=== PATIENT | male | born 1935 | race Caucasian/White ===

== ENCOUNTER 2021-09-23 02:41 | Inpatient (IN) | payer OTHER, MEDICAID ==
[~2021-09-23] VITALS: Ht 172.7 cm; Wt 90.4 kg
[2021-09-23] MEDS ORDERED: METF-1211 PO (02:59)
[2021-09-23] MEDS ORDERED: RIVA15TA PO (02:59)
[2021-09-23] MEDS ORDERED: BUME1TAB34 PO (02:59)
[2021-09-23] MEDS ORDERED: GABA-1181 PO (02:59)
[2021-09-23] MEDS ORDERED: MULT-660 PO (02:59)
[2021-09-23] MEDS ORDERED: LEVO75 PO (02:59)
[2021-09-23] MEDS ORDERED: CARV3 PO (02:59)
[2021-09-23 03:11] LABS: BASOPHILS % (AUTO) 1.1 % (0.0-2.0); EOSINOPHILS % (AUTO) 5.4 % (1.0-6.0); HEMATOCRIT 38.6 % (41-53); HEMOGLOBIN 12.9 g/dL (13.5-17.5); LYMPHOCYTES # (AUTO) 1.3 K/uL (1.0-4.8); LYMPHOCYTES % (AUTO) 16.7 % (22.0-44.0); MEAN CORPUSCULAR HEMOGLOBIN 29.9 pg (26.0-34.0); MEAN CORPUSCULAR HGB CONC 33.4 G/dL (31.0-37.0); MEAN CORPUSCULAR VOLUME 90 fL (80-100); MONOCYTES # (AUTO) 0.7 K/uL (0.1-1.0); MONOCYTES % (AUTO) 9.5 % (2.0-9.0); NEUTROPHILS # (AUTO) 5.1 K/uL (1.8-7.7); NEUTROPHILS % (AUTO) 67.3 % (40.0-70.0); PLATELET COUNT (AUTO) 201 K/uL (150-450); RED BLOOD CELL COUNT(AUTO) 4.32 MIL/uL (4.50-5.90); RED CELL DISTRIBUTION WIDTH 15.1 % (11.5-14.5)
[2021-09-23 03:14] LABS: COVID AG,FIA SOURCE NASAL SWAB
[2021-09-23 03:17] LABS: CREATININE 1.53 mg/dL (0.60-1.30); POTASSIUM 4.4 mmol/L (3.5-5.1)
[2021-09-23 03:21] LABS: INR 1.3 (0.9-1.1); PROTHROMBIN TIME 13.4 SEC (9.4-11.6)
[2021-09-23 03:23] LABS: ALBUMIN 2.6 g/dL (3.4-5.0); BILIRUBIN,TOTAL 0.4 mg/dL (0.1-1.0); TOTAL PROTEIN, SERUM 7.9 g/dL (6.4-8.2)
[2021-09-23 03:49] LABS: FREE T4 (FREE THYROXINE) 1.22 ng/dL (0.76-1.46); THYROID STIMULATING HORMONE 5.45 uIU/mL (0.36-3.74)
[2021-09-23] MEDS ORDERED: 0.9% SODIUM CHLORIDE 10 ML SYRINGE IVP PRN (04:30)
[2021-09-23] MEDS ORDERED: ACETAMINOPHEN 325 MG TABLET PO PRN (05:30)
[2021-09-23] MEDS: LEVOTHYROXINE SODIUM 75 MCG TABLET PO SCH (07:52)
[2021-09-23 08:00] VITALS: BP 104/39
[2021-09-23] MEDS ORDERED: HEPARIN SODIUM,PORCINE 5,000 UNITS/ML VIAL SQ SCH (08:00)
[2021-09-23] MEDS: BUMETANIDE 1 MG TABLET PO SCH (09:00)
[2021-09-23] MEDS: MULTIVITAMINS, THERAPEUTIC TABLET PO SCH (09:00)
[2021-09-23] MEDS: GABAPENTIN 300 MG CAPSULE PO SCH ×3 (09:00→20:54)
[2021-09-23] MEDS: ETHYL ALCOHOL 62% ANTISEPTIC NASAL INHALANT 0.6 ML AMPUL NASAL SCH ×2 (09:00→20:54)
[2021-09-23 12:00] VITALS: BP 116/47
[2021-09-23 16:00] VITALS: BP 126/53
[2021-09-23] MEDS ORDERED: RIVAROXABAN 15 MG TABLET PO SCH (17:30)
[2021-09-23 20:00] VITALS: BP 125/71
[2021-09-24] VITALS: BP 129/87
[2021-09-24 04:00] VITALS: BP 111/54
[2021-09-24 05:40] LABS: BASOPHILS % (AUTO) 1.1 % (0.0-2.0); EOSINOPHILS % (AUTO) 5.7 % (1.0-6.0); HEMATOCRIT 39.5 % (41-53); HEMOGLOBIN 13.1 g/dL (13.5-17.5); LYMPHOCYTES # (AUTO) 1.1 K/uL (1.0-4.8); LYMPHOCYTES % (AUTO) 17.1 % (22.0-44.0); MEAN CORPUSCULAR HEMOGLOBIN 29.8 pg (26.0-34.0); MEAN CORPUSCULAR VOLUME 90 fL (80-100); MONOCYTES # (AUTO) 0.6 K/uL (0.1-1.0); MONOCYTES % (AUTO) 9.5 % (2.0-9.0); NEUTROPHILS # (AUTO) 4.2 K/uL (1.8-7.7); NEUTROPHILS % (AUTO) 66.6 % (40.0-70.0); PLATELET COUNT (AUTO) 196 K/uL (150-450); RED BLOOD CELL COUNT(AUTO) 4.38 MIL/uL (4.50-5.90); RED CELL DISTRIBUTION WIDTH 15.3 % (11.5-14.5)
[2021-09-24 05:45] LABS: CALCIUM, TOTAL 8.9 mg/dL (8.8-10.5); CREATININE 1.61 mg/dL (0.60-1.30); POTASSIUM 3.9 mmol/L (3.5-5.1)
[2021-09-24] MEDS: LEVOTHYROXINE SODIUM 75 MCG TABLET PO SCH (06:17)
[2021-09-24 08:00] VITALS: BP 118/96
[2021-09-24] MEDS: GABAPENTIN 300 MG CAPSULE PO SCH ×3 (09:11→20:50)
[2021-09-24] MEDS: MULTIVITAMINS, THERAPEUTIC TABLET PO SCH (09:11)
[2021-09-24] MEDS: BUMETANIDE 1 MG TABLET PO SCH (09:11)
[2021-09-24] MEDS: ETHYL ALCOHOL 62% ANTISEPTIC NASAL INHALANT 0.6 ML AMPUL NASAL SCH ×2 (09:11→20:50)
[2021-09-24 12:00] VITALS: BP 114/62
[2021-09-24] MEDS ORDERED: ATROPINE SULFATE 0.1 MG/ML 10 ML SYRINGE IVP PRN (13:15)
[2021-09-24 16:00] VITALS: BP 129/68
[2021-09-24 20:00] VITALS: BP 116/53
[2021-09-25] VITALS (7 sets, daily range): BP systolic 109–136; BP diastolic 42–68
[2021-09-25] MEDS: LEVOTHYROXINE SODIUM 75 MCG TABLET PO SCH (05:35)
[2021-09-25 05:40] LABS: BASOPHILS % (AUTO) 0.8 % (0.0-2.0); HEMATOCRIT 38.5 % (41-53); LYMPHOCYTES # (AUTO) 1.1 K/uL (1.0-4.8); LYMPHOCYTES % (AUTO) 14.1 % (22.0-44.0); MEAN CORPUSCULAR HEMOGLOBIN 30.1 pg (26.0-34.0); MEAN CORPUSCULAR HGB CONC 33.6 G/dL (31.0-37.0); MEAN CORPUSCULAR VOLUME 90 fL (80-100); MONOCYTES # (AUTO) 0.8 K/uL (0.1-1.0); MONOCYTES % (AUTO) 9.9 % (2.0-9.0); NEUTROPHILS # (AUTO) 5.3 K/uL (1.8-7.7); NEUTROPHILS % (AUTO) 69.2 % (40.0-70.0); PLATELET COUNT (AUTO) 209 K/uL (150-450); RED CELL DISTRIBUTION WIDTH 15.1 % (11.5-14.5)
[2021-09-25 06:17] LABS: CREATININE 1.76 mg/dL (0.60-1.30)
[2021-09-25] MEDS: ETHYL ALCOHOL 62% ANTISEPTIC NASAL INHALANT 0.6 ML AMPUL NASAL SCH ×2 (09:41→20:33)
[2021-09-25] MEDS: MULTIVITAMINS, THERAPEUTIC TABLET PO SCH (09:42)
[2021-09-25] MEDS: GABAPENTIN 300 MG CAPSULE PO SCH ×3 (09:42→20:32)
[2021-09-25] MEDS: BUMETANIDE 1 MG TABLET PO SCH (09:42)
[2021-09-25] MEDS: RIVAROXABAN 15 MG TABLET PO SCH ×2 (17:38→17:43)
[2021-09-26 00:11] VITALS: BP 125/48
[2021-09-26 04:24] VITALS: BP 120/51
[2021-09-26] MEDS: LEVOTHYROXINE SODIUM 75 MCG TABLET PO SCH (05:32)
[2021-09-26 07:17] VITALS: BP 121/53
[2021-09-26 07:46] LABS: BASOPHILS % (AUTO) 0.9 % (0.0-2.0); EOSINOPHILS % (AUTO) 6.2 % (1.0-6.0); HEMATOCRIT 37.5 % (41-53); HEMOGLOBIN 12.6 g/dL (13.5-17.5); LYMPHOCYTES # (AUTO) 1.2 K/uL (1.0-4.8); MEAN CORPUSCULAR HEMOGLOBIN 30.1 pg (26.0-34.0); MEAN CORPUSCULAR HGB CONC 33.5 G/dL (31.0-37.0); MEAN CORPUSCULAR VOLUME 90 fL (80-100); MONOCYTES # (AUTO) 0.7 K/uL (0.1-1.0); MONOCYTES % (AUTO) 10.6 % (2.0-9.0); NEUTROPHILS # (AUTO) 4.6 K/uL (1.8-7.7); NEUTROPHILS % (AUTO) 65.3 % (40.0-70.0); PLATELET COUNT (AUTO) 198 K/uL (150-450); RED BLOOD CELL COUNT(AUTO) 4.18 MIL/uL (4.50-5.90); RED CELL DISTRIBUTION WIDTH 15.2 % (11.5-14.5)
[2021-09-26 07:59] LABS: CREATININE 1.95 mg/dL (0.60-1.30); POTASSIUM 3.8 mmol/L (3.5-5.1)
[2021-09-26] MEDS: GABAPENTIN 300 MG CAPSULE PO SCH ×2 (09:43→16:13)
[2021-09-26] MEDS: ETHYL ALCOHOL 62% ANTISEPTIC NASAL INHALANT 0.6 ML AMPUL NASAL SCH (09:43)
[2021-09-26] MEDS: MULTIVITAMINS, THERAPEUTIC TABLET PO SCH (09:46)
[2021-09-26] MEDS: BUMETANIDE 1 MG TABLET PO SCH (09:46)
[2021-09-26 12:16] VITALS: BP 133/61
[2021-09-26 15:29] VITALS: BP 123/53
[2021-09-26] MEDS: RIVAROXABAN 15 MG TABLET PO SCH (18:19)
[2021-09-26 20:46] LABS: GLUCOMETER DEV NAME(LOC) 5N.3; GLUCOSE,POINT OF CARE 207 MG/DL (70-110)
[2021-09-26] MEDS ORDERED: ETHYL ALCOHOL 62% ANTISEPTIC NASAL INHALANT 0.6 ML AMPUL NASAL SCH (21:00)
== END 2021-09-26 19:05 | DRG 309 ==
LOC: EMS 02:42 → ICU 04:00 → 5N 09-25 17:30
PROVIDERS: ADMIT Internal Medicine; ATTEND Internal Medicine
DX: I48.91 Unspecified atrial fibrillation (principal); I13.0 Hypertensive heart and chronic kidney disease with heart failure and stage 1 through stage 4 chronic kidney disease, or unspecified chronic kidney disease; R00.1 Bradycardia, unspecified; F32.A Depression, unspecified; I50.9 Heart failure, unspecified; E11.51 Type 2 diabetes mellitus with diabetic peripheral angiopathy without gangrene; N18.30 Chronic kidney disease, stage 3 unspecified; E11.22 Type 2 diabetes mellitus with diabetic chronic kidney disease; Z20.822 Contact with and (suspected) exposure to COVID-19; F03.90 Unspecified dementia, unspecified severity, without behavioral disturbance, psychotic disturbance, mood disturbance, and anxiety; F39 Unspecified mood [affective] disorder; E03.9 Hypothyroidism, unspecified; E78.00 Pure hypercholesterolemia, unspecified; I25.2 Old myocardial infarction; Z89.429 Acquired absence of other toe(s), unspecified side; Z79.01 Long term (current) use of anticoagulants; Z79.899 Other long term (current) drug therapy
CPT/HCPCS: 71045; 80048; 80053; 82550; 82962; 83880; 84439; 84443; 84484; 85025; 85610; 85730; 87081; 92610; 93005; 93306; 99291; G0378; 36415-L1; 36415-TC

== ENCOUNTER 2022-07-27 19:01 | Inpatient (IN) | payer OTHER, MEDICAID ==
[~2022-07-27] VITALS: Ht 175.3 cm; Wt 83.8 kg
[~2022-07-27 19:01] MED LIST: BUME1TAB34 PO; GABA-1181 PO; LEVO75 PO; METF-1211 PO; MULT-660 PO; RIVA15TA PO
[2022-07-27] MEDS ORDERED: BISA10SU61 PR (19:25)
[2022-07-27] MEDS ORDERED: MAGN-169 PO (19:25)
[2022-07-27] MEDS ORDERED: BALS60OI3 TP (19:25)
[2022-07-27] MEDS ORDERED: ASCO-360 PO (19:28)
[2022-07-27] MEDS ORDERED: SERT-158 PO (19:28)
[2022-07-27 20:31] LABS: COVID AG,FIA SOURCE NASAL SWAB
[2022-07-27 20:46] LABS: BASOPHILS % (AUTO) 0.9 % (0.0-2.0); EOSINOPHILS % (AUTO) 3.4 % (1.0-6.0); HEMATOCRIT 37.8 % (41-53); HEMOGLOBIN 12.3 g/dL (13.5-17.5); LYMPHOCYTES % (AUTO) 11.5 % (22.0-44.0); MEAN CORPUSCULAR HEMOGLOBIN 27.8 pg (26.0-34.0); MEAN CORPUSCULAR HGB CONC 32.6 G/dL (31.0-37.0); MEAN CORPUSCULAR VOLUME 85 fL (80-100); MONOCYTES # (AUTO) 0.7 K/uL (0.1-1.0); MONOCYTES % (AUTO) 8.4 % (2.0-9.0); NEUTROPHILS # (AUTO) 6.4 K/uL (1.8-7.7); NEUTROPHILS % (AUTO) 75.8 % (40.0-70.0); PLATELET COUNT (AUTO) 254 K/uL (150-450); RED BLOOD CELL COUNT(AUTO) 4.43 MIL/uL (4.50-5.90); RED CELL DISTRIBUTION WIDTH 16.3 % (11.5-14.5)
[2022-07-27 20:54] LABS: CREATININE 1.45 mg/dL (0.60-1.30)
[2022-07-27 21:00] LABS: ALBUMIN 2.3 g/dL (3.4-5.0); BILIRUBIN,TOTAL 0.3 mg/dL (0.1-1.0); TOTAL PROTEIN, SERUM 8.3 g/dL (6.4-8.2)
[2022-07-27] MEDS ORDERED: ACETAMINOPHEN 325 MG TABLET PO PRN (21:45)
[2022-07-27] MEDS ORDERED: MAGNESIUM HYDROXIDE SUSPENSION 30 ML UDCUP PO PRN (21:45)
[2022-07-27] MEDS ORDERED: DEXTROSE 50%-WATER 25 GM/50 ML SYRINGE IVP PRN (22:00)
[2022-07-27 22:13] LABS: THYROID STIMULATING HORMONE 2.23 uIU/mL (0.36-3.74)
[2022-07-27] MEDS ORDERED: BUMETANIDE 0.25 MG/ML 4 ML VIAL IVP SCH (22:45)
[2022-07-27] MEDS: ASPIRIN 81 MG CHEWABLE TABLET PO SCH (23:50)
[2022-07-27] MEDS: HEPARIN SODIUM,PORCINE 5,000 UNITS/ML VIAL SQ SCH (23:50)
[2022-07-27] MEDS: ATORVASTATIN CALCIUM 40 MG TABLET PO SCH (23:50)
[2022-07-28] VITALS (7 sets, daily range): BP systolic 96–146; BP diastolic 40–69
[2022-07-28] MEDS: CeFAZolin 1 GM/DEXTROSE 50 ML IV SCH ×3 (00:08→23:29)
[2022-07-28] MEDS: BUMETANIDE 0.25 MG/ML 4 ML VIAL IVP SCH ×3 (00:09→22:31)
[2022-07-28] MEDS: INSULIN LISPRO 100 UNITS/ML SQ PRN ×2 (05:50→13:45)
[2022-07-28 05:52] LABS: BASOPHILS % (AUTO) 0.9 % (0.0-2.0); EOSINOPHILS % (AUTO) 4.3 % (1.0-6.0); HEMATOCRIT 36.1 % (41-53); HEMOGLOBIN 11.9 g/dL (13.5-17.5); LYMPHOCYTES # (AUTO) 1.1 K/uL (1.0-4.8); LYMPHOCYTES % (AUTO) 15.4 % (22.0-44.0); MEAN CORPUSCULAR HEMOGLOBIN 27.8 pg (26.0-34.0); MEAN CORPUSCULAR HGB CONC 32.9 G/dL (31.0-37.0); MEAN CORPUSCULAR VOLUME 85 fL (80-100); MONOCYTES # (AUTO) 0.6 K/uL (0.1-1.0); MONOCYTES % (AUTO) 8.2 % (2.0-9.0); NEUTROPHILS # (AUTO) 5.2 K/uL (1.8-7.7); NEUTROPHILS % (AUTO) 71.2 % (40.0-70.0); PLATELET COUNT (AUTO) 249 K/uL (150-450); RED BLOOD CELL COUNT(AUTO) 4.27 MIL/uL (4.50-5.90); RED CELL DISTRIBUTION WIDTH 16.9 % (11.5-14.5)
[2022-07-28] MEDS: LEVOTHYROXINE SODIUM 75 MCG TABLET PO SCH (05:57)
[2022-07-28 06:04] LABS: CREATININE 1.37 mg/dL (0.60-1.30); MAGNESIUM 2.1 mg/dL (1.80-2.40); POTASSIUM 4.1 mmol/L (3.5-5.1)
[2022-07-28 06:21] LABS: GLUCOMETER DEV NAME(LOC) 5S.1B; GLUCOSE,POINT OF CARE 134 MG/DL (70-110)
[2022-07-28] MEDS ORDERED: MetFORMIN HCL 500 MG TABLET PO SCH (08:00)
[2022-07-28] MEDS ORDERED: BUMETANIDE 1 MG TABLET PO SCH (09:00)
[2022-07-28] MEDS: MULTIVITAMINS, THERAPEUTIC TABLET PO SCH (09:21)
[2022-07-28] MEDS: GABAPENTIN 300 MG CAPSULE PO SCH ×3 (09:22→22:30)
[2022-07-28] MEDS: SERTRALINE HCL 50 MG TABLET PO SCH (09:22)
[2022-07-28] MEDS: ASCORBIC ACID 500 MG TABLET PO SCH ×2 (09:22→23:27)
[2022-07-28] MEDS: HEPARIN SODIUM,PORCINE 5,000 UNITS/ML VIAL SQ SCH ×3 (09:22→23:27)
[2022-07-28] MEDS ORDERED: SODIUM CHLORIDE 0.9% 500 ML IV ONE (12:07)
[2022-07-28] MEDS: RIVAROXABAN 15 MG TABLET PO SCH (18:00)
[2022-07-28 18:37] LABS: GLUCOMETER DEV NAME(LOC) 5N.1C; GLUCOSE,POINT OF CARE 173 MG/DL (70-110)
[2022-07-28 18:37] LABS: GLUCOMETER DEV NAME(LOC) 5N.1C; GLUCOSE,POINT OF CARE 107 MG/DL (70-110)
[2022-07-28] MEDS: ATORVASTATIN CALCIUM 40 MG TABLET PO SCH (22:30)
[2022-07-28] MEDS: ASPIRIN 81 MG CHEWABLE TABLET PO SCH (22:30)
[2022-07-29] VITALS: BP 135/62
[2022-07-29 01:06] LABS: GLUCOMETER DEV NAME(LOC) 5N.1C; GLUCOSE,POINT OF CARE 138 MG/DL (70-110)
[2022-07-29 04:57] VITALS: BP 143/61
[2022-07-29] MEDS: LEVOTHYROXINE SODIUM 75 MCG TABLET PO SCH (06:26)
[2022-07-29 08:25] VITALS: BP 124/66
[2022-07-29] MEDS: MULTIVITAMINS, THERAPEUTIC TABLET PO SCH (08:36)
[2022-07-29] MEDS: GABAPENTIN 300 MG CAPSULE PO SCH ×3 (08:36→20:37)
[2022-07-29] MEDS: ASCORBIC ACID 500 MG TABLET PO SCH ×2 (08:36→20:37)
[2022-07-29] MEDS: SERTRALINE HCL 50 MG TABLET PO SCH (08:38)
[2022-07-29] MEDS: HEPARIN SODIUM,PORCINE 5,000 UNITS/ML VIAL SQ SCH ×3 (08:39→23:59)
[2022-07-29] MEDS: BUMETANIDE 0.25 MG/ML 4 ML VIAL IVP SCH ×2 (08:39→20:54)
[2022-07-29] MEDS: CeFAZolin 1 GM/DEXTROSE 50 ML IV SCH (11:50)
[2022-07-29 12:10] VITALS: BP 132/82
[2022-07-29 15:53] VITALS: BP 105/48
[2022-07-29 16:00] LABS: BASOPHILS % (AUTO) 1.4 % (0.0-2.0); EOSINOPHILS % (AUTO) 4.6 % (1.0-6.0); LYMPHOCYTES # (AUTO) 1.2 K/uL (1.0-4.8); LYMPHOCYTES % (AUTO) 19.1 % (22.0-44.0); MEAN CORPUSCULAR HEMOGLOBIN 27.7 pg (26.0-34.0); MEAN CORPUSCULAR HGB CONC 32.3 G/dL (31.0-37.0); MEAN CORPUSCULAR VOLUME 86 fL (80-100); MONOCYTES # (AUTO) 0.6 K/uL (0.1-1.0); MONOCYTES % (AUTO) 9.6 % (2.0-9.0); NEUTROPHILS % (AUTO) 65.3 % (40.0-70.0); PLATELET COUNT (AUTO) 238 K/uL (150-450); RED BLOOD CELL COUNT(AUTO) 4.31 MIL/uL (4.50-5.90); RED CELL DISTRIBUTION WIDTH 16.8 % (11.5-14.5)
[2022-07-29 16:11] LABS: CALCIUM, TOTAL 8.6 mg/dL (8.8-10.5); CREATININE 1.43 mg/dL (0.60-1.30)
[2022-07-29 16:23] LABS: BILIRUBIN,TOTAL 0.3 mg/dL (0.1-1.0); TOTAL PROTEIN, SERUM 7.6 g/dL (6.4-8.2)
[2022-07-29] MEDS: RIVAROXABAN 15 MG TABLET PO SCH (17:39)
[2022-07-29 20:35] VITALS: BP 123/77
[2022-07-29] MEDS: ASPIRIN 81 MG CHEWABLE TABLET PO SCH (20:37)
[2022-07-29] MEDS: ATORVASTATIN CALCIUM 40 MG TABLET PO SCH (20:37)
[2022-07-29] MEDS: INSULIN LISPRO 100 UNITS/ML SQ PRN (20:43)
[2022-07-29 22:01] LABS: GLUCOMETER DEV NAME(LOC) 6N.2B; GLUCOSE,POINT OF CARE 195 MG/DL (70-110)
[2022-07-30] MEDS: CeFAZolin 1 GM/DEXTROSE 50 ML IV SCH
[2022-07-30 04:15] VITALS: BP 160/89
[2022-07-30] MEDS: LEVOTHYROXINE SODIUM 75 MCG TABLET PO SCH (05:58)
[2022-07-30 06:06] LABS: GLUCOMETER DEV NAME(LOC) 5N.1C; GLUCOSE,POINT OF CARE 111 MG/DL (70-110)
[2022-07-30 06:46] LABS: GLUCOMETER DEV NAME(LOC) 6N.2B; GLUCOSE,POINT OF CARE 102 MG/DL (70-110)
[2022-07-30 07:41] VITALS: BP 147/58
[2022-07-30] MEDS: GABAPENTIN 300 MG CAPSULE PO SCH (08:57)
[2022-07-30] MEDS: MULTIVITAMINS, THERAPEUTIC TABLET PO SCH (08:57)
[2022-07-30] MEDS: ASCORBIC ACID 500 MG TABLET PO SCH (08:57)
[2022-07-30] MEDS: SERTRALINE HCL 50 MG TABLET PO SCH (08:57)
[2022-07-30] MEDS: BUMETANIDE 0.25 MG/ML 4 ML VIAL IVP SCH (09:00)
[2022-07-30] MEDS ORDERED: BALSAM PERU/CASTOR OIL 60 GM OINTMENT TP SCH (09:00)
[2022-07-30] MEDS: HEPARIN SODIUM,PORCINE 5,000 UNITS/ML VIAL SQ SCH (09:03)
[2022-07-30 11:35] VITALS: BP 149/58
[2022-07-30] MEDS: INSULIN LISPRO 100 UNITS/ML SQ PRN (11:54)
[2022-07-30 12:16] LABS: GLUCOMETER DEV NAME(LOC) 6N.2B; GLUCOSE,POINT OF CARE 186 MG/DL (70-110)
== END 2022-07-30 13:02 | DRG 91 ==
LOC: EMS 19:09 → 5S 23:05 → 6S 07-29 11:15
PROVIDERS: ADMIT Internal Medicine; ATTEND Internal Medicine
DX: G92.8 Other toxic encephalopathy (principal); I50.23 Acute on chronic systolic (congestive) heart failure; I13.0 Hypertensive heart and chronic kidney disease with heart failure and stage 1 through stage 4 chronic kidney disease, or unspecified chronic kidney disease; L03.116 Cellulitis of left lower limb; N17.9 Acute kidney failure, unspecified; F03.B3 Unspecified dementia, moderate, with mood disturbance; E44.0 Moderate protein-calorie malnutrition; I48.91 Unspecified atrial fibrillation; E03.9 Hypothyroidism, unspecified; E11.22 Type 2 diabetes mellitus with diabetic chronic kidney disease; E11.51 Type 2 diabetes mellitus with diabetic peripheral angiopathy without gangrene; E78.00 Pure hypercholesterolemia, unspecified; E11.42 Type 2 diabetes mellitus with diabetic polyneuropathy; N18.9 Chronic kidney disease, unspecified; Z66 Do not resuscitate; Z20.822 Contact with and (suspected) exposure to COVID-19; S81.802A Unspecified open wound, left lower leg, initial encounter; I87.2 Venous insufficiency (chronic) (peripheral); X58.XXXA Exposure to other specified factors, initial encounter; Y93.89 Activity, other specified; Z51.5 Encounter for palliative care; Y92.89 Other specified places as the place of occurrence of the external cause; Y99.8 Other external cause status; Z68.27 Body mass index [BMI] 27.0-27.9, adult
CPT/HCPCS: 71045; 80048; 80053; 82962; 83605; 83735; 83880; 84443; 84484; 85025; 93005; 93925; 99291; J0690; J1644; J3490; J7040; 36415-L1; 36415-TC

== ENCOUNTER 2022-07-30 13:09 | Emergency (ER) | payer OTHER, MEDICAID ==
[~2022-07-30] VITALS: Ht 172.7 cm; Wt 72.7 kg
[~2022-07-30 13:09] MED LIST changes: +ASCO-360 PO; +BALS60OI3 TP; +BISA10SU61 PR; +MAGN-169 PO; +SERT-158 PO
[2022-07-30 18:07] VITALS: BP 114/49
== END 2022-07-30 19:43 | disposition home or self-care (01) ==
LOC: EMS 13:32
DX: R00.1 Bradycardia, unspecified (principal); I48.91 Unspecified atrial fibrillation; F32.A Depression, unspecified; E11.9 Type 2 diabetes mellitus without complications; E78.00 Pure hypercholesterolemia, unspecified; E03.9 Hypothyroidism, unspecified; I11.0 Hypertensive heart disease with heart failure; I50.9 Heart failure, unspecified; Z89.429 Acquired absence of other toe(s), unspecified side; Z51.5 Encounter for palliative care
CPT/HCPCS: 93005; 99285; Z7502